=== PATIENT | female | born 1995 | race American Indian/Alaskan Native ===

== ENCOUNTER 2017-09-08 04:12 | Outpatient (CLI) | payer MEDICAID ==
[2017-09-08 04:32] VITALS: BP 135/76
== END 2017-09-08 05:17 | disposition home or self-care (01) ==
LOC: TRG 04:12
PROVIDERS: ATTEND Obstetrics & Gynecology
DX: O47.1 False labor at or after 37 completed weeks of gestation (principal); Z3A.37 37 weeks gestation of pregnancy

== ENCOUNTER 2017-10-02 09:19 | Inpatient (IN) | payer MEDICAID ==
[2017-10-02] MEDS ORDERED: ZOFRAN IV PRN (10:38)
[2017-10-02] MEDS ORDERED: BRETHINE SUB-Q PRN (10:38)
[2017-10-02] MEDS ORDERED: ePHEDrine SULFATE IV PRN ×2 (10:38→18:38)
[2017-10-02] MEDS ORDERED: SUBLIMAZE IV PRN (10:38)
[2017-10-02] MEDS ORDERED: MINERAL OIL PO PRN (10:38)
--- NOTE | 2017-10-02 10:38 | History and Physical Report ---
History of Present Illness Date of examination: 10/02/17 Date of admission: 10/02/17 09:19 Chief complaint: scheduled postdates IOL @ 41+2 weeks History of present illness: EDC Confirmation: 09/23/2017 Past History : 1 Term Births: 0 Premature Births: 0 Living Children: 0 Para: 0 Mult. Births: 0 Prev : 0 Prev. attempt? 0 Aborta: 0 Elect. Ab: 0 Spont. Ab: 0 Ectopics: 0 Past Medical History: Negative Past Medical History Past Surgical History: negative Past Medical History Anesthesia Complications: negative Anemia: negative Autoimmune Disorder: negative Bleeding Disorder: negative Blood Transfusions: negative Breast Disease: negative Diabetes: negative Heart Disease: negative Hypertension: negative Hepatitis/Liver Disease: negative Kidney Disease/UTI: negative Neurologic/Epilepsy/Migraines: negative Phlebitis/Varicosities: negative Psychiatric: negative Pulmonary Disease/Asthma: negative Thyroid Disease: negative Hospitalizations: negative Surgery (Non-inspector subassemblies): negative Abnormal PAP: no had pap d/t age Family Hx: MGM - CA (possibly breast?) MGF - DM Social Hx: single, unemployed, lives with her uncle denies ETOH/drugs/Smoking Infection History Hx of STD: none HIV Risk Eval: no Hepatitis B Risk Eval: low risk Personal hx. of genital herpes: no Partner hx. of genital herpes: no Rash, Viral, or Febrile illness since last LMP? no Varicella/Chicken Pox Status: Unknown TB Risk: no Genetic History Congenital Heart Defect: Mom: no Dad: no Nigel Disease: Mom: no Dad: no Thalassemia Mom: no Dad: no Neural Tube Defect Mom: no Dad: no Down's Syndrome Mom: no Dad: no Ridge-Sachs Mom: no Dad: no Sickle Cell Disease/Trait Mom: no Dad: no Hemophilia Mom: no Dad: no Muscular Dystrophy Mom: no Dad: no Cystic Fibrosis Mom: no Dad: no Regulo Chorea Mom: no Dad: no Mental Retardation Mom: no Dad: no Fragile X Mom: no Dad: no Other Genetic/Chromosomal Disorder Mom: no Dad: no Child w/other defect Mom: no Dad: no Enviromental Exposures Xray Exposure: no Medication, drug, or alcohol use since LMP: no Chemical/Other Exposure: no Exposure to Cat Liter: no Hx of Parvovirus (Fifth Disease): no Occupational Exposure to Children: none Current Allergies (reviewed today): No known allergies Past History Past Medical History: no pertinent history Past Surgical History: no surgical history - Obstetrical History Expected Date of Delivery: 09/23/17 Actual Gestation: 41 Week(s) 2 Day(s) : 1 Para: 0 Hx # Term Pregnancies: 0 Number of Pregnancies: 0 Spontaneous Abortions: 0 Induced : 0 Number of Living Children: 0 Medications and Allergies Allergies Allergy/AdvReac Type Severity Reaction Status Date / Time No Known Allergies Allergy Verified 09/08/17 04:41 Home Medications Medication Instructions Recorded Confirmed Last Taken Type Tablet 1 tab PO DAILY 09/08/17 09/08/17 09/07/17 12:00 History Review of Systems All systems: negative - Vital Signs Vital signs: Vital Signs Pulse BP 73 120/72 10/02/17 10:30 10/02/17 10:30 Temp Pulse Resp BP Pulse Ox 73 120/72 10/02/17 10:30 10/02/17 10:30 - Physical Exam Breasts: Positive: normal Cardiovascular: Regular rate Lungs: Positive: Clear to auscultation, Normal air movement Abdomen: Positive: normal appearance, soft Genitourinary (Female): Positive: normal external genitalia, normal perenium Vulva: both: normal Vagina: Positive: normal moisture Uterus: Positive: normal size Anus/Rectum: Positive: normal perianal skin Extremities: Positive: normal - Obstetrical FHR: auscultation normal Uterine Contraction Monitor Mode: External Cervical Dilatation: 2 Cervical Effacement Percentage: 50 station: -4 Results All other labs normal. Patient: MARTHA YANES ID: [id number] Note: All result statuses are Final unless otherwise noted. Tests: (1) Profile I ([id number]) Order Note: Clinical Information: SRC:UR HBsAg Screen Negative Negative *1 Rubella Antibodies, IgG 7.65 index Immune >0.99 *2 Non-immune <0.90 Equivocal 0.90 - 0.99 Immune >0.99 ABO Grouping O *3 Rh Factor Positive *4 Please note: Prior records for this patient's ABO / Rh type are not available for additional verification. Antibody Screen Negative Negative *5 RPR Non Reactive Non Reactive *6 WBC 7.9 x10E3/uL 3.4-10.8 *7 RBC 3.78 x10E6/uL 3.77-5.28 *8 Hemoglobin [L] 10.9 g/dL 11.1-15.9 *9 Hematocrit [L] 32.6 % 34.0-46.6 *10 MCV 86 fL 79-97 *11 MCH 28.8 pg 26.6-33.0 *12 MCHC 33.4 g/dL 31.5-35.7 *13 RDW 14.6 % 12.3-15.4 *14 Platelets 316 x10E3/uL 150-379 *15 Neutrophils 80 % *16 Lymphs 11 % *17 Monocytes 8 % *18 Eos 1 % *19 Basos 0 % *20 ! Immature Cells <No Reported Value> *21 Neutrophils (Absolute) 6.3 x10E3/uL 1.4-7.0 *22 Lymphs (Absolute) 0.9 x10E3/uL 0.7-3.1 *23 Monocytes(Absolute) 0.6 x10E3/uL 0.1-0.9 *24 Eos (Absolute) 0.1 x10E3/uL 0.0-0.4 *25 Baso (Absolute) 0.0 x10E3/uL 0.0-0.2 *26 ! Immature Granulocytes 0 % *27 ! Immature Grans (Abs) 0.0 x10E3/uL 0.0-0.1 *28 ! NRBC <No Reported Value> *29 Hematology Comments: <No Reported Value> *30 Tests: (2) Cystic Fibrosis Profile ([id number]) ! CF, Screen Comment: *31 RESULTS: Negative for 32 mutations analyzed INTERPRETATION: This individual is negative for the mutations analyzed. This negative result may need further interpretation depending on the clinical indication. This result reduces but does not eliminate the risk to be a CF carrier. COMMENTS: The detection rate varies with ethnicity and is listed below. The presence of an undetected mutation in the CF gene cannot be ruled out. In the absence of family history, the remaining risk that a person with a negative result could have at least one CF mutation is listed in the table. If there is a family history of CF, these risk figures do not apply. As detailed information regarding this individual's family history would permit a more accurate assessment of this individual's risk to be a carrier of cystic fibrosis, please contact [employer] at for a revised report. Mutation Detection Detection rates are based on mutation Rates among Ethnic frequencies in patients affected with Groups cystic fibrosis. Among individuals with an atypical or mild presentation (e.g. congenital absence of the vas deferens, pancreatitis) detection rates may vary from those provided here: Carrier risk reduction when no family history Detection Ethnicity Rate Ashkenazi 12/20 to 97% Yazidism 12/19 to 90% (non-) -Mozambican to 69% to 73% to 55% This interpretation is based on the clinical and family relationship information provided and the current understanding of the molecular genetics of this condition. MUTATIONS ANALYZED: G85E V520F W1750Y 2183AA to G R117H G542X I1757I 2184delA R334W S549N 394delTT 2789+5G to A R347H S549R 621+1G to T 3120+1G to A R347P G551D 711+1G to T 3659delC A455E R553X 1078delT 3849+10kbC to T UftplY266 R560T 1717-1G to A 3876delA ClxmmG203 G6147E 1898+1G to A 3905insT METHODS/LIMITATIONS: DNA is isolated from the sample and tested for the 32 CF mutations on the Dexter Array Platform ([employer] Regions of the CFTR gene are amplified enzymatically and subjected to a solution-phase multiplex allele-specific primer extension with subsequent hybridization to a bead array and fluorescence detection. Polymorphisms F508C, I506V and I507V are included in this panel to rule out false positive [id number] homozygotes. Reflex testing of 5T is included in the panel for R117H interpretation. False positive or negative results may occur for reasons that include genetic variants, blood transfusions, bone marrow transplantation, erroneous representation of family relationships or contamination of a sample with maternal cells. REFERENCES: 1. Updates on Carrier Screening for Cystic Fibrosis. (2011) Am J Ob Gynecol 117(4):7158-2320 2. Librado et al. (2004) [facility] Med 6:387-91 3. Sandra et al. (2002) [place] Med 4:379-391 4. Preconception and carrier screening for cystic fibrosis: (2001)ACOG.ACMG publication Results Released By: Isacc Moreno M.D., Exhibit Builder Report Released By: Isacc Moreno M.D., Exhibit Builder ! Comment: SPRCS *32 The assay provides information intended to be used for carrier screening in adults of reproductive age, as an aid in screening, and as a confirmatory test for another medically established diagnosis in newborns and children. The test is not indicated for use in diagnostic testing, pre-implantation screening, or for any stand-alone diagnostic purposes without confirmation by another medically established diagnostic product or procedure. Tests: (3) HB Solu + Rflx Frac (860157) Hemoglobin (Hgb) Solubility Negative Negative *33 Tests: (4) Panel [id number] (620010) HIV Screen 4th Generation wRfx Non Reactive Non Reactive *34 Tests: (5) Gest. Diabetes 1-Hr Screen (467985) ! Gestational Diabetes Screen 103 mg/dL 65-139 *35 According to ADA, a glucose threshold of >139 mg/dL after 50-gram load identifies approximately 80% of women with gestational diabetes mellitus, while the sensitivity is further increased to approximately 90% by a threshold of >129 mg/dL. Tests: (6) HCV Ab w/Rflx to Verification (044505) ! HCV Ab <0.1 s/co ratio 0.0-0.9 *36 Tests: (7) Comment: (841353) ! Comment: SPR *37 Tests: (1) Chlamydia/GC Amplification (148633) Order Note: Clinical Information: SRC:VR SRC:UR Chlamydia trachomatis, CHILO Negative Negative *1 Neisseria gonorrhoeae, CHILO Negative Negative *2 Tests: (2) Strep Gp B CHILO (912601) ! Strep Gp B CHILO Negative Negative * Assessment and Plan 22y/o G1PO @ 41+2 weeks, late to care, dated by second trimester u/s @ 22wks. Plan for IOL with pitocin. u/s EFW on 09/20 7#15oz. Admission orders in EMR. u/s to confirm vertex before starting pitocin. - Patient Problems (1) Elective induction of labor planned Current Visit: Yes Status: Acute (2) 41 weeks gestation of Current Visit: Yes Status: Acute
--- NOTE | 2017-10-02 11:46 | Ultrasound Report ---
ULTRASOUND OB LIMITED History: Confirm presentation Technique: Transabdominal ultrasound with Doppler interrogation. Gestation: Single Position: Cephalic Heart Rate: 149 BPM
[2017-10-02] MEDS ORDERED: PITOCin/NS 20 UNIT/1000ML DRIP 20 UNITS/1,000 ML BAG IV SCH ×3 (12:00→23:00)
[2017-10-02] MEDS ORDERED: XYLOCAINE 2% INFILTRATI ONE (12:00)
[2017-10-02] MEDS: LACTATED RINGERS 1,000 ML IV SCH ×2 (12:26→20:23)
[2017-10-02] MEDS: PITOCin/NS 30 UNIT/500ML 30 UNITS/500 ML BAG IV SCH ×5 (12:32→16:13)
[2017-10-02 12:34] LABS: Hematocrit 36.2 % (30.3-42.9); Mean Corpuscular HGB Conc 33 % (30-34); Mean Corpuscular Hemoglobin 28 pg (28-32); Mean Corpuscular Volume 85 fl (79-97); Platelet Count 177 K/mm3 (140-440); Red Blood Count 4.24 M/mm3 (3.65-5.03); White Blood Count 7.8 K/mm3 (4.5-11.0)
[2017-10-02 12:35] LABS: Red Cell Distribution Width 20.1 % (13.2-15.2)
--- NOTE | 2017-10-02 16:42 | Progress Note ---
Assessment and Plan patient resting with pain rated 6/10, denies need for iv sedation or epidural at this time. Ctx palpated strong, resting tone soft. SVE 4/80/-4, anterior, BBOW noted. Stool noted in rectum during SVE, advised patient to attempt BM. Will report to Dr. Guerra. Continue current plan of care. - Patient Problems (1) Elective induction of labor planned Current Visit: Yes Status: Acute (2) 41 weeks gestation of Current Visit: Yes Status: Acute Subjective - Subjective Date of service: 10/02/17 Principal diagnosis: IUP @ 41+2, IOL Interval history: EDC Confirmation: 09/23/2017 Past History : 1 Term Births: 0 Premature Births: 0 Living Children: 0 Para: 0 Mult. Births: 0 Prev : 0 Prev. attempt? 0 Aborta: 0 Elect. Ab: 0 Spont. Ab: 0 Ectopics: 0 Past Medical History: Negative Past Medical History Past Surgical History: negative Past Medical History Anesthesia Complications: negative Anemia: negative Autoimmune Disorder: negative Bleeding Disorder: negative Blood Transfusions: negative Breast Disease: negative Diabetes: negative Heart Disease: negative Hypertension: negative Hepatitis/Liver Disease: negative Kidney Disease/UTI: negative Neurologic/Epilepsy/Migraines: negative Phlebitis/Varicosities: negative Psychiatric: negative Pulmonary Disease/Asthma: negative Thyroid Disease: negative Hospitalizations: negative Surgery (Non-chief juvenile probation officer): negative Abnormal PAP: no had pap d/t age Family Hx: MGM - [place] (possibly breast?) MGF - DM Social Hx: single, unemployed, lives with her uncle denies ETOH/drugs/Smoking Infection History Hx of STD: none HIV Risk Eval: no Hepatitis B Risk Eval: low risk Personal hx. of genital herpes: no Partner hx. of genital herpes: no Rash, Viral, or Febrile illness since last LMP? no Varicella/Chicken Pox Status: Unknown TB Risk: no Genetic History Congenital Heart Defect: Mom: no Dad: no Nigel Disease: Mom: no Dad: no Thalassemia Mom: no Dad: no Neural Tube Defect Mom: no Dad: no Down's Syndrome Mom: no Dad: no Ridge-Sachs Mom: no Dad: no Sickle Cell Disease/Trait Mom: no Dad: no Hemophilia Mom: no Dad: no Muscular Dystrophy Mom: no Dad: no Cystic Fibrosis Mom: no Dad: no Regulo Chorea Mom: no Dad: no Mental Retardation Mom: no Dad: no Fragile X Mom: no Dad: no Other Genetic/Chromosomal Disorder Mom: no Dad: no Child w/other defect Mom: no Dad: no Enviromental Exposures Xray Exposure: no Medication, drug, or alcohol use since LMP: no Chemical/Other Exposure: no Exposure to Cat Liter: no Hx of Parvovirus (Fifth Disease): no Occupational Exposure to Children: none Current Allergies (reviewed today): No known allergies Patient reports: contractions Objective - Vital Signs Vital Signs: Vital Signs - 12hr 10/02/17 10/02/17 10:30 11:00 Temperature 97.7 F Pulse Rate 73 73 Respiratory 18 Rate Blood Pressure 120/72 Blood Pressure 120/72 [Right] - Exam Breasts: normal Cardiovascular: Regular rate Lungs: Clear to auscultation, Normal air movement Abdomen: Present: normal appearance, soft Vulva: both: normal Uterus: Present: normal FHR: category 2 Uterine Contraction Monitor Mode: External Cervical Dilatation: 4 (anterior) Cervical Effacement Percentage: 80 station: -4 Uterine Contraction Frequency (min): 1-2 Uterine Contraction Duration: 80-100 Uterine Contraction Pattern: Regular Uterine Tone Measurement Phase: Contraction Uterine Contraction Intensity: Strong/Firm Extremities: normal Deep Tendon Reflex Grade: Normal +2 - Labs Labs: Abnormal Labs 10/02/17 11:58 RDW 20.1 H Laboratory Results - last 24 hr 10/02/17 10/02/17 10/02/17 11:58 11:58 11:58 WBC 7.8 RBC 4.24 Hgb 12.0 Hct 36.2 MCV 85 MCH 28 MCHC 33 RDW 20.1 H Plt Count 177 RPR Nonreactive Blood Type O POSITIVE Antibody Screen Negative
[2017-10-02] MEDS ORDERED: ePHEDrine SULFATE ONE (18:16)
[2017-10-02] MEDS ORDERED: fentaNYL-BUPIV 2 MCG/ML-0.125% 200 MCG/100 ML BAG EPIDURAL ONE (18:16)
[2017-10-02] MEDS ORDERED: NARCAN 2 MG/2 ML IV PRN (18:38)
--- NOTE | 2017-10-02 18:38 | Anesthesia Consultation ---
Anesthesia Consult and Med Hx Date of service: 10/02/17 - Airway Anesthetic Teeth Evaluation: Good ROM Head & Neck: Adequate Mental/Hyoid Distance: Adequate Mallampati Class: Class II Intubation Access Assessment: Probably Good - Pulmonary Exam CTA: Yes - Cardiac Exam Cardiac Exam: RRR - Pre-Operative Health Status Proposed Anesthetic Plan: Epidural - Pulmonary Hx Asthma: No COPD: No Hx Pneumonia: No - Cardiovascular System Hx Hypertension: No - Central Nervous System Hx Seizures: No Hx Psychiatric Problems: No - Endocrine Hx Renal Disease: No Hx End Stage Renal Disease: No Hx Hypothyroidism: No Hx Hyperthyroidism: No - Hematic Hx Anemia: No Hx Sickle Cell Disease: No - Other Systems Hx Alcohol Use: No
[2017-10-02] MEDS ORDERED: fentaNYL-BUPIV 2 MCG/ML-0.125% 200 MCG/100 ML BAG EPIDURAL SCH (19:00)
[2017-10-02] MEDS ORDERED: PEPCID IV ONE ×2 (21:00→21:04)
[2017-10-02] MEDS ORDERED: REGLAN IV ONE (21:00)
[2017-10-02] MEDS ORDERED: ANCEF/STERILE WATER 2 GM/20 ML 2 GM/20 ML SYRINGE IV NR (21:00)
[2017-10-02] MEDS ORDERED: BICITRA PO ONE (21:00)
[2017-10-02] MEDS ORDERED: LACTATED RINGERS 1,000 ML IV SCH (21:00)
--- NOTE | 2017-10-02 21:01 | Event Note ---
Date: 10/02/17 22 yo G1 at 41 wk + 2d gestation admitted for induction for post dates. On ultrasound done 09/20 (11 days ago) she had an EFW of 7#15oz and a BPD of 9.92cm. She was inducted with Pitocin and went into labor easily. She was 2/50 /-4 at 10:45, 4/80/-4 at 4:46--at 6:30 she was 6/80/-4 and membranes were ruptured for distress and released a very large amount of amniotic fluid, the head was noted to be molded into the pelvis to -2 but the vertex itself was still -4 and internal monitors were placed and Pitocin decreased. Even after release of a large amount of fluid, the maternal abdomen has a pronounced double hump appearance which is usually associated with an OP presentation and the head was palpable abdominally after the pelvic brim. Since then she has had 2.5 hours of very adequate labor and there is no change of the cervix. tracing now fairly flat but still CAT 1. I explained to the patient and the family that section was indicated for failure to progress and failure of descent.
--- NOTE | 2017-10-02 21:15 | Anesthesia Day of Surgery ---
Anesthesia Day of Surgery - Day of Surgery Patient Examined: Yes Patient H&P Reviewed: Yes Patient is NPO: Yes
[2017-10-02] MEDS ORDERED: NACL 0.9% IR ONE (21:35)
[2017-10-02] MEDS ORDERED: XYLOCAINE MPF 2% ONE (21:40)
[2017-10-02] MEDS ORDERED: DILAUDID ONE (21:40)
[2017-10-02] MEDS ORDERED: WATER FOR IRRIG STERILE IR ONE (21:42)
[2017-10-02] MEDS ORDERED: SUBLIMAZE ONE ×2 (21:52→22:12)
[2017-10-02] MEDS ORDERED: VERSED ONE ×2 (22:00→22:05)
[2017-10-02] MEDS ORDERED: DIPRIVAN 10 MG/ML IV ONE (22:14)
[2017-10-02] MEDS ORDERED: KETALAR ONE (22:19)
--- NOTE | 2017-10-02 22:40 | Operative Report ---
Operative Report Operative Report: Date of Procedure: 10/02/2017 Procedure name(s): Primary transverse low segment section Pre-operative diagnosis: Intrauterine at 41 weeks and 2 days, induction of labor, suspected macrosomia, failure to progress in labor despite adequate labor, failure of descent Post-operative diagnosis: Same Surgeon: Whitney Guerra M.D. Touring Production Manager: PREMA Anesthesia: Epidural EBL: 800 mL : 9 lbs. 10 oz. (4362 g) male with Apgars of 1 and 8 (infant initially looked vigorous in deteriorated immediately upon cord clamping and was easily resuscitated by the staff). Cord gases were not done because I was unaware of the assigned until after the end of the case. Time of : 2151 Findings Double tubes, uterus and ovaries, unusual appearance of the uterus in the maternal abdomen. Very tight maternal musculature Procedure The patient was taken to the operating room and after adequate anesthesia was obtained she was placed in the supine position in left lateral tilt. Sequential compression devices were in place on both lower extremities and a King catheter was placed in a sterile fashion. The abdomen was then prepped and draped in the usual fashion. Surgical time-out was done with the entire OR team attentive. A Pfannenstiel incision was made with a scalpel and sharp dissection was carried down through all layers of the abdomen in the usual fashion. The abdomen was entered bluntly and the lower uterine segment was identified. The presenting part was palpated and a bladder flap was created with the Metzenbaum scissors. The scalpel was used to incise the uterus in a transverse fashion and this incision was extended bluntly with finger traction and the membranes were ruptured. My hand was inserted into the uterus. The vertex was grasped, rotated to an OA presentation and delivered with a combination of traction and fundal pressure. The cord was clamped and cut and a viable infant was suctioned and handed off to the attending NICU staff and was a 9 lbs. 10 oz. (4362 g) male with Apgars of 1 and 8. The placenta was removed manually, the interior of the uterus was cleansed with moist lap packs and the uterus was exteriorized. The uterine incision was closed with a double imbricating layer of 0 Vicryl suture in a running fashion. Hemostasis was adequate and the uterus was returned to the abdomen. Uterus was well contracted. The abdomen was then closed in layers: the rectus muscles were closed with several [id number] sutures of 0 Vicryl, the fascia was closed with running sutures of 0 Vicryl starting at both side corners in turn and tied together in the midline. The subcutaneous tissue was irrigated and then closed with several interrupted sutures of 2-0 plain and the skin was closed with a running subcuticular suture of 4-0 Vicryl. Sponge and Lap count correct X 3, estimated blood loss was 800 mL and the King was draining clear urine. The patient tolerated the procedure well and was discharged to PACU in good condition.
[2017-10-02] MEDS ORDERED: PERCOCET 5/325 PO PRN (22:42)
[2017-10-02] MEDS ORDERED: LANSINOH TP PRN (22:42)
[2017-10-02] MEDS ORDERED: NORCO 5/325 PO PRN (22:42)
[2017-10-02] MEDS ORDERED: MYLICON PO PRN (22:42)
[2017-10-02] MEDS ORDERED: TUCKS PAD TP PRN (22:42)
[2017-10-02] MEDS ORDERED: NARCAN 0.4 MG/1 ML IV PRN (22:42)
[2017-10-02] MEDS ORDERED: TORADOL ONE (22:46)
--- NOTE | 2017-10-02 22:57 | Post Anesthesia Evaluation ---
- Post Anesthesia Evaluation Patient Participated: Yes Airway Patent: Yes Stable Respiratory Function: Yes Nausea/Vomiting: No Temp > 96.8F: Yes Pain Manageable: Yes Adequeate Hydration: Yes Anesthesia Complications: No Block Receding Appropriately: Not Applicable Patient on Ventilator: No
[2017-10-02] MEDS ORDERED: DILAUDID IV PRN (22:59)
[2017-10-02] MEDS ORDERED: SODIUM CHLORIDE FLUSH SYRINGE 10 ML IV NR (23:00)
[2017-10-02] MEDS ORDERED: D5LR 1,000 ML IV SCH (23:00)
[2017-10-03] MEDS: ANCEF/NS 1 GM/50 ML 1 GM/50 ML BAG IV SCH ×2 (05:56→14:00)
[2017-10-03] MEDS: TORADOL IV PRN ×2 (05:59→15:26)
[2017-10-03] MEDS ORDERED: BOOSTRIX IM ONE (06:00)
--- NOTE | 2017-10-03 07:01 | Progress Note ---
Assessment and Plan - Patient Problems (1) delivery delivered Onset Date: ~10/03/17 Current Visit: Yes Status: Acute Plan to address problem: pt w/o complaint VSS BP 130/80-70 FF below umb Lochia small Dressing D&I - it had been reinforced by RN H&H postop pending Doing well s/p section P: continue pathway Advance diet and activity as tolerated. Subjective - Subjective Date of service: 10/03/17 (pt A&O X3 Breast feeding) Principal diagnosis: Day # 1 s/p section failure to progress Patient reports: voiding normally (clear yellow urine noted in sanchez bag) [place]: doing well Objective - Vital Signs Latest vital signs: Vital Signs Temp Pulse Resp BP BP Pulse Ox 10/03/17 00:41 99.2 F 64 20 137/74 10/03/17 00:00 77 21 137/80 98 10/02/17 23:55 77 11 L 131/74 99 10/02/17 23:50 98.7 F 83 15 135/84 99 10/02/17 23:45 77 22 133/69 98 10/02/17 23:40 72 24 140/76 96 10/02/17 23:35 77 25 H 136/74 98 10/02/17 23:30 77 19 133/62 97 10/02/17 23:25 74 20 131/76 96 10/02/17 23:20 77 19 129/74 97 10/02/17 23:15 74 25 H 97 10/02/17 23:10 81 15 98 10/02/17 23:06 80 15 97 10/02/17 23:05 79 12 131/74 97 10/02/17 23:00 84 20 134/83 99 10/02/17 22:56 76 15 134/74 98 10/02/17 22:52 98.7 F 85 13 132/65 100 10/02/17 21:20 98.0 F 10/02/17 21:14 84 127/74 10/02/17 20:59 69 136/64 10/02/17 20:44 64 126/62 10/02/17 20:30 64 127/65 10/02/17 20:14 62 128/59 10/02/17 20:00 66 99/54 10/02/17 19:43 90 112/69 10/02/17 19:41 58 L 124/76 10/02/17 19:39 62 123/77 10/02/17 19:37 80 111/68 10/02/17 19:35 59 L 122/71 10/02/17 19:33 56 L 122/71 10/02/17 19:31 97.6 F 96 H 16 103/64 10/02/17 19:28 60 114/69 10/02/17 19:27 57 L 118/70 10/02/17 19:24 93 H 99/61 10/02/17 19:23 93 H 100/62 10/02/17 19:21 64 109/60 10/02/17 19:19 85 112/58 10/02/17 19:17 56 L 123/72 10/02/17 19:15 65 95/53 10/02/17 19:13 82 102/59 10/02/17 19:11 61 111/60 10/02/17 19:09 59 L 117/61 10/02/17 19:06 91 H 91/50 10/02/17 19:05 84 101/57 10/02/17 19:02 70 108/58 10/02/17 19:01 69 107/55 10/02/17 18:58 81 103/56 10/02/17 18:57 71 98/53 10/02/17 18:55 74 96/51 10/02/17 18:53 77 104/59 10/02/17 18:51 80 94/59 10/02/17 18:49 75 97/53 10/02/17 18:47 74 121/56 10/02/17 18:45 63 121/58 10/02/17 18:43 64 124/59 10/02/17 18:41 61 125/55 10/02/17 18:39 64 141/64 10/02/17 18:37 63 155/72 10/02/17 18:35 80 124/77 10/02/17 18:32 111 H 97/72 10/02/17 11:00 97.7 F 73 18 120/72 10/02/17 10:30 73 120/72 Intake and Output 10/02/17 10/02/17 10/03/17 14:59 22:59 06:59 Intake Total 13.467 2101.817 425 Output Total 100 550 Balance 13.467 2000.817 -125 Intake: IV 13.467 210.817 425 Lactated Ringers 1,000 ml 993.75 @ 125 mls/hr IV DIRECT JOVANNA Rx#:[id number] PITOCin/NS 30 UNIT/500ML 13.467 108.067 30 units In 500 ml @ 4 mls/hr IV TITR JOVANNA Rx#: [id number] Right Hand 125 Output: Urine 100 550 Uretheral (Sanchez) 275 Other: Weight 215 lb Estimated Blood Loss 800 Patient Weight 10/03/17 06:59 Weight 215 lb - Exam Breasts: Present: normal, Cardiovascular: Present: Regular rate Lungs: Present: Clear to auscultation, Normal air movement Abdomen: Present: normal appearance, soft, normal bowel sounds Uterus: Present: normal, firm, fundal height below umbilicus Extremities: Present: edema Deep Tendon Reflex Grade: Normal +2 Incision: Present: dry, intact, dressed (to be removed today) - Labs Labs: Abnormal lab results 10/02/17 Range/Units 11:58 RDW 20.1 H (13.2-15.2) %
[2017-10-03 12:01] LABS: Hematocrit 30.7 % (30.3-42.9); Hemoglobin 10.3 gm/dl (10.1-14.3)
--- NOTE | 2017-10-03 14:18 | Progress Note ---
Subjective Date of service: 10/03/17 Principal diagnosis: Day # 1 s/p section failure to progress Interval history: 1st POD after Patient is in the bed, comfortable. Pain is well controlled with pain meds. Ambulated well. No residual neurological deficit. No pruritus. No anesthesia complications Objective - Constitutional Vitals: Vital Signs - 12hr 10/03/17 10/03/17 10/03/17 03:50 08:10 12:50 Temperature 98.6 F 98.8 F 98.8 F Pulse Rate 63 60 76 Respiratory 18 18 18 Rate Blood Pressure 116/64 116/56 114/68 [Right] - Labs CBC & Chem 7: 10/03/17 11:16
[2017-10-03] MEDS ORDERED: MILK OF MAGNESIA PO SCH (22:00)
[2017-10-03] MEDS: MOTRIN PO PRN (23:38)
[2017-10-04] MEDS: MOTRIN PO PRN ×2 (06:42→13:30)
--- NOTE | 2017-10-04 07:50 | Progress Note ---
Assessment and Plan patient doing well, no complaints this AM. Lochia scant, VSSAF, H&H stable, without concern. Patient has good support from family at home. She desires d/c home today. plan for routine f/u 1 week. - Patient Problems (1) delivery delivered Onset Date: ~10/03/17 Current Visit: Yes Status: Acute Subjective - Subjective Date of service: 10/04/17 Principal diagnosis: Day # 2 s/p section failure to progress Interval history: EDC Confirmation: 09/23/2017 Past History : 1 Term Births: 0 Premature Births: 0 Living Children: 0 Para: 0 Mult. Births: 0 Prev : 0 Prev. attempt? 0 Aborta: 0 Elect. Ab: 0 Spont. Ab: 0 Ectopics: 0 Past Medical History: Negative Past Medical History Past Surgical History: negative Past Medical History Anesthesia Complications: negative Anemia: negative Autoimmune Disorder: negative Bleeding Disorder: negative Blood Transfusions: negative Breast Disease: negative Diabetes: negative Heart Disease: negative Hypertension: negative Hepatitis/Liver Disease: negative Kidney Disease/UTI: negative Neurologic/Epilepsy/Migraines: negative Phlebitis/Varicosities: negative Psychiatric: negative Pulmonary Disease/Asthma: negative Thyroid Disease: negative Hospitalizations: negative Surgery (Non-heat seal operator): negative Abnormal PAP: no had pap d/t age Family Hx: MGM - CA (possibly breast?) MGF - DM Social Hx: single, unemployed, lives with her uncle denies ETOH/drugs/Smoking Infection History Hx of STD: none HIV Risk Eval: no Hepatitis B Risk Eval: low risk Personal hx. of genital herpes: no Partner hx. of genital herpes: no Rash, Viral, or Febrile illness since last LMP? no Varicella/Chicken Pox Status: Unknown TB Risk: no Genetic History Congenital Heart Defect: Mom: no Dad: no Nigel Disease: Mom: no Dad: no Thalassemia Mom: no Dad: no Neural Tube Defect Mom: no Dad: no Down's Syndrome Mom: no Dad: no [place]s Mom: no Dad: no Sickle Cell Disease/Trait Mom: no Dad: no Hemophilia Mom: no Dad: no Muscular Dystrophy Mom: no Dad: no Cystic Fibrosis Mom: no Dad: no [place] Chorea Mom: no Dad: no Mental Retardation Mom: no Dad: no Fragile X Mom: no Dad: no Other Genetic/Chromosomal Disorder Mom: no Dad: no Child w/other defect Mom: no Dad: no Enviromental Exposures Xray Exposure: no Medication, drug, or alcohol use since LMP: no Chemical/Other Exposure: no Exposure to Cat Liter: no Hx of Parvovirus (Fifth Disease): no Occupational Exposure to Children: none Current Allergies (reviewed today): No known allergies Patient reports: appetite normal, voiding normally, pain well controlled, flatus , ambulating normally, no dizzy ambulation, no nauseated [place]: doing well, nursing well Objective - Vital Signs Latest vital signs: Vital Signs Temp Pulse Resp BP 10/04/17 00:39 99.1 F 75 20 125/63 10/03/17 16:10 98.4 F 70 18 113/54 10/03/17 12:50 98.8 F 76 18 114/68 10/03/17 08:10 98.8 F 60 18 116/56 Intake and Output 10/03/17 10/03/17 10/04/17 15:59 23:59 07:59 Intake Total 240 360 360 Output Total 500 Balance -260 360 360 Intake: Oral 240 120 360 Intake, Free Water 240 Output: Urine 500 Indwelling Catheter 200 Void 300 Other: Total, Intake Amount 120 120 120 Total, Output Amount 300 # Voids Void 1 1 1 - Exam Breasts: Present: normal, Cardiovascular: Present: Regular rate Lungs: Present: Clear to auscultation, Normal air movement Abdomen: Present: normal appearance, soft, normal bowel sounds Vulva: both: normal Uterus: Present: normal, firm, fundal height at umbilicus Extremities: Present: normal Incision: Present: normal, dry, intact
--- NOTE | 2017-10-04 07:52 | Discharge Summary ---
Providers - Providers Date of Admission: 10/02/17 09:19 Date of discharge: 10/04/17 (desires d/c home) Attending physician: MIYA MILAN Primary care physician: LILIA KULKARNI Hospitalization Reason for admission: induction of labor Delivery: Procedure: primary low transverse Episiotomy: none Laceration: none Incision: normal, dry, intact Other procedures: none complications: none Discharge diagnosis: IUP at term delivered baby: male Hospital course: uncomplicated c/s Condition at discharge: Good Disposition: DC-01 TO HOME OR SELFCARE - Discharge Diagnoses (1) delivery delivered Status: Acute Plan - Discharge Medications Prescriptions: Ibuprofen [Motrin 800 MG tab] 800 mg PO Q8HR PRN #30 tablet PRN Reason: Pain Lidocain2.5%/Prilocai2.5% [Emla] 5 gm TP 1XW #1 tube oxyCODONE /ACETAMINOPHEN [Percocet 5/325 mg] 1 - 2 tab PO Q4HR PRN #30 tab PRN Reason: Pain - Provider Discharge Summary Activity: routine, no sex for 6 weeks, no heavy lifting 4 weeks, no strenuous exercise Diet: routine Instructions: routine Additional instructions: [] Smoking cessation referral if applicable(refer to patient education folder for contact #) [] Refer to [facility] Booklet Call your doctor immediately for: * Fever > 100.5 * Heavy vaginal bleeding ( >1 pad per hour) * Severe persistent headache * Shortness of breath * Reddened, hot, painful area to leg or breast * Drainage or odor from incision. * Keep incision clean and dry at all times and follow doctor's instructions regarding bathing/showering - Follow up plan Follow up: LILIA KULKARNI MD [Primary Care Provider] - 7 Days (Congratulations!! Please call [phone] to schedule your incision check in 1 week and your son' s circumcision in 1 week. Bring EMLA cream to your son's appointment and await further instructions. Call for any questions or concerns.)
[2017-10-04 19:00] VITALS: BP 111/63
== END 2017-10-04 18:56 | disposition home or self-care (01) | DRG 766 ==
LOC: LD 09:19 → APU 21:36 → OB 10-03 01:08
PROVIDERS: ADMIT Obstetrics & Gynecology; ATTEND Obstetrics & Gynecology
PROC: 10D00Z1 Extraction of Products of Conception, Low, Open Approach (ICD-10-PCS; principal; 2017-10-02)
DX: O48.0 Post-term pregnancy (principal); O61.0 Failed medical induction of labor; Z3A.41 41 weeks gestation of pregnancy; Z37.0 Single live birth; O32.4XX0 Maternal care for high head at term, not applicable or unspecified
CPT/HCPCS: 36415; 76815; 85014; 85018; 85027; 86592; 86850; 86900; 86901; 88307; 90471; 90715; 99211; G0463; J0690; J1170; J1885; J2250; J2590; J2704; J2765; J3010; J7120; J7121